=== PATIENT | female | born 1975 | race Caucasian/White ===

== ENCOUNTER 2022-05-24 11:51 | Emergency (ER) | payer MEDICARE, MEDICAID, SELFPAY ==
--- NOTE | ~2022-05-24 | XR_ITS ---
EXAMINATION: XR chest 2V DATE: 05/24/2022 12:18 INDICATION: Worsening cough TECHNIQUE: PA and lateral views of the chest are obtained. COMPARISON: None available FINDINGS: The lungs are free of acute opacities. No pleural effusion or pneumothorax. The cardiomedia stinal silhouette is normal. The visualized bones and soft tissues are unremarkable. A cardiac monito ring device is implanted in the anterior chest wall just to the left of midline. Surgical clips in th e right upper quadrant are likely from prior cholecystectomy. IMPRESSION: 1. No acute cardiopulmonary abnormality. Reviewed, dictated and finalized at location B.
[2022-05-24 11:58] VITALS: BP 95/61; PULSE 75; RESP 16; TEMP 36.9; O2SAT 100
--- NOTE | 2022-05-24 12:06 | ED.URI ---
HPI - URI/Sore Throat General Chief Complaint: Upper Respiratory Infection Stated Complaint: uri Time Seen by Provider: 05/24/22 12:07 Source: patient and RN notes reviewed Mode of arrival: ambulatory Limitations: no limitations History of Present Illness HPI Narrative: 46 y/o female presented for c/o cough for 3 weeks. Endorses clear sputum, and associated sinus pressure/congestion, and over the last 24 hours developed fatigue, headache and states fever 101. She took Z-pack and Augmentin without relief in symptoms. States she is scheduled for open heart surgery this month for aortic valve replacement. Smokes 1PPD. MD elicited complaint: cough Related Data Home Medications Medication Instructions Recorded Confirmed azelastine 137 mcg (0.1 %) nasal intranasal 05/24/22 spray aerosol calcium carbonate 600 mg-vitamin tablet PO 05/24/22 D3 10 mcg (400 unit) tablet desonide 0.05 % topical ointment topical 05/24/22 dexlansoprazole 60 mg mg 05/24/22 capsule,biphase delayed release (Dexilant) dicyclomine 10 mg capsule mg 05/24/22 diltiazem HCl 30 mg tablet 30 mg PO TID 05/24/22 05/24/22 estradiol 2 mg tablet mg 05/24/22 famotidine 20 mg tablet mg 05/24/22 ferrous sulfate 325 mg (65 mg mg 05/24/22 iron) tablet flecainide 100 mg tablet 100 mg PO DAILY 05/24/22 05/24/22 furosemide 20 mg tablet 20 mg PO DAILY 05/24/22 05/24/22 gabapentin 600 mg tablet 600 mg PO TID 05/24/22 05/24/22 hydrocodone 10 mg-acetaminophen tablet 05/24/22 325 mg tablet hydroxyzine HCl 50 mg tablet mg 05/24/22 lemborexant 10 mg tablet (Dayvigo) 10 mg PO HS 05/24/22 05/24/22 magnesium oxide mg 05/24/22 methocarbamol 500 mg tablet 500 mg PO DIRECTED 05/24/22 05/24/22 metoclopramide HCl 10 mg tablet mg 05/24/22 midodrine 10 mg tablet mg 05/24/22 montelukast 10 mg tablet mg 05/24/22 prochlorperazine maleate 10 mg 10 mg PO TID 05/24/22 05/24/22 tablet sertraline 50 mg tablet 50 mg PO DAILY 05/24/22 05/24/22 sumatriptan succinate 100 mg tablet 100 mg PO DIRECTED PRN Headache 05/24/22 05/24/22 topiramate 100 mg tablet mg 05/24/22 Allergies Allergy/AdvReac Type Severity Reaction Status Date / Time No Known Allergies Allergy Verified 05/24/22 12:06 Review of Systems Review of Systems: CONSTITUTIONAL: Endorses malaise, chills, sweats, fever EYES: Denies visual changes, redness, or discharge ENT: Reports rhinorrhea, congestion, sinus pain, otalgia CARDIOVASCULAR: Denies chest pain, palpitations, edema RESPIRATORY: Reports cough, post nasal drainage. Denies dyspnea GASTROINTESTINAL: Denies abdominal pain, nausea, vomiting, diarrhea MUSCULOSKELETAL: Endorses myalgia Exam Narrative: GENERAL: well-appearing EYES: conjunctivae clear ENT: Mucous membranes moist. TMs pearly elizabeth with normal light reflex bilaterally; no tragal tenderness. Oropharynx erythematous without lesions or exudate, no drooling, no hoarseness, no trismus, uvula midline. CHEST: Clear to auscultation, breath sounds equal. No wheezing, rhonchi, rales, or stridor. No respiratory distress, speaks in full sentences. HEART: Regular rate and rhythm. SKIN: Warm, dry, no rash. NEURO: Alert and oriented x3. Course Course Emergency Course: Patient is aware of diagnosis, understands and agrees to treatment plan. Anticipatory guidance given. Patient agrees to follow-up as directed and is aware of reasons to seek care at the emergency department. Portions of this record may have been created with voice recognition software Level of Care: Express Care Visit Vital Signs Vital signs: Vital Signs Temperature 98.4 F 05/24/22 11:58 Pulse Rate 75 05/24/22 11:58 Respiratory Rate 16 05/24/22 11:58 Blood Pressure 95/61 L 05/24/22 11:58 Pulse Oximetry 100 05/24/22 11:58 Oxygen Delivery Room Air 05/24/22 11:58 Temperature 98.4 F 05/24/22 11:58 Pulse Rate 75 05/24/22 11:58 Respiratory Rate 16 05/24/22 11:58 Blood Pressure 95/61
== END 2022-05-24 12:44 | disposition home or self-care (01) ==
PROVIDERS: Emergency Provider Nurse Practitioner Family; PCP Physician Assistant
DX: J40 Bronchitis, not specified as acute or chronic (principal); F17.200 Nicotine dependence, unspecified, uncomplicated; Z95.2 Presence of prosthetic heart valve
CPT/HCPCS: 71046; 99203; G0463

== ENCOUNTER 2023-02-18 12:07 | Emergency (ER) | payer MEDICARE, MEDICAID, SELFPAY ==
--- NOTE | ~2023-02-18 | XR_ITS ---
EXAMINATION: XR hip RT 2V w AP pelvis DATE: 02/18/2023 12:57 INDICATION: Right hip pain. TECHNIQUE: An anteroposterior view of the pelvis and 2 views of right hip were obtained. COMPARISON: None. FINDINGS: Bone alignment is normal. No fracture. There is mild osteoarthritis of the hips. IMPRESSION: 1. Mild osteoarthritis of the hips. Reviewed, dictated and finalized at location A.
--- NOTE | ~2023-02-18 | XR_ITS ---
EXAMINATION: XR elbow RT min 3V DATE: 02/18/2023 12:57 INDICATION: Right elbow pain. Fall. TECHNIQUE: 4 views of right elbow were obtained. COMPARISON: None. FINDINGS: Bone alignment is normal. No fracture. Joint spaces are well maintained. There is no elbow joint effusion. There is soft tissue swelling overlying the olecranon. IMPRESSION: 1. No fracture. Reviewed, dictated and finalized at location A. IMPRESSION: 1. No fracture.
--- NOTE | ~2023-02-18 | XR_ITS ---
EXAMINATION: XR sacrum coccyx min 2V DATE: 02/18/2023 12:57 INDICATION: Sacrococcygeal pain. Fall. TECHNIQUE: 3 views of the sacrum and coccyx on 4 radiographs were obtained. COMPARISON: None. FINDINGS: Bone alignment is normal. No fracture. There is mild osteoarthritis of left sacroiliac join t. IMPRESSION: 1. Mild osteoarthritis of left sacroiliac joint. Reviewed, dictated and finalized at location A.
[2023-02-18 12:16] VITALS: BP 92/64; PULSE 104; RESP 16; TEMP 36.3; O2SAT 100
--- NOTE | 2023-02-18 12:29 | ED.GENADULT ---
HPI - General Adult General Chief complaint: Fall Stated complaint: Fall Injury/Right Elbow/Low Back Source: patient Mode of arrival: ambulatory Limitations: no limitations History of Present Illness HPI narrative: Patient presents for evaluation after a fall 2 nights ago. She indicates she was at home with the time of the event. She has underlying POTS and has syncopal events. She was walking from her bedroom to bathroom at the time of her event. She believes she hit her head. +LOC for a few seconds. No vomiting since the event. She now reports right elbow pain and pain in coccyx/right buttock. She rates the pain in her right elbow 6/10 severity in the pain in her right buttock is 8/10. She has hydrocodone at home which she takes for chronic back pain. She is currently on coumadin and her INR within the past 24 hrs was 2.7. She has been able to ambulate since the event. She had some decreased ROM in right elbow yesterday but that has improved. No paresthesias. She is a nurse. Related Data Home Medications Medication Instructions Recorded Confirmed azelastine 137 mcg (0.1 %) nasal intranasal 05/24/22 spray aerosol calcium carbonate 600 mg-vitamin tablet PO 05/24/22 D3 10 mcg (400 unit) tablet desonide 0.05 % topical ointment topical 05/24/22 dexlansoprazole 60 mg mg 05/24/22 capsule,biphase delayed release (Dexilant) dicyclomine 10 mg capsule mg 05/24/22 diltiazem HCl 30 mg tablet 30 mg PO TID 05/24/22 05/24/22 estradiol 2 mg tablet mg 05/24/22 famotidine 20 mg tablet mg 05/24/22 ferrous sulfate 325 mg (65 mg mg 05/24/22 iron) tablet flecainide 100 mg tablet 100 mg PO DAILY 05/24/22 05/24/22 furosemide 20 mg tablet 20 mg PO DAILY 05/24/22 05/24/22 gabapentin 600 mg tablet 600 mg PO TID 05/24/22 05/24/22 hydrocodone 10 mg-acetaminophen tablet 05/24/22 325 mg tablet hydroxyzine HCl 50 mg tablet mg 05/24/22 lemborexant 10 mg tablet (Dayvigo) 10 mg PO HS 05/24/22 05/24/22 magnesium oxide mg 05/24/22 methocarbamol 500 mg tablet 500 mg PO DIRECTED 05/24/22 05/24/22 metoclopramide HCl 10 mg tablet mg 05/24/22 midodrine 10 mg tablet mg 05/24/22 montelukast 10 mg tablet mg 05/24/22 prochlorperazine maleate 10 mg 10 mg PO TID 05/24/22 05/24/22 tablet sertraline 50 mg tablet 50 mg PO DAILY 05/24/22 05/24/22 sumatriptan succinate 100 mg tablet 100 mg PO DIRECTED PRN Headache 05/24/22 05/24/22 topiramate 100 mg tablet mg 05/24/22 Allergies Allergy/AdvReac Type Severity Reaction Status Date / Time No Known Allergies Allergy Verified 05/24/22 12:06 Review of Systems Review of Systems: CONSTITUTIONAL: Denies fever, chills, or sweats. EYES: Denies visual changes, redness, or discharge. ENT: Denies rhinorrhea, congestion, sore throat, or otalgia. CARDIOVASCULAR: Denies chest pain, palpitations, or edema. RESPIRATORY: Denies cough or dyspnea. GASTROINTESTINAL: Denies abdominal pain, nausea, vomiting, or diarrhea. GENITOURINARY: Denies dysuria or hematuria. SKIN: Denies rash or itching. MUSCULOSKELETAL: Reports chronic low back pain. Reports pain in the right buttock and right elbow NEUROLOGIC: Denies headache, numbness, dizziness, or weakness. PSYCHIATRIC: Denies anxiety or depression. [facility] Past Medical History Medical History (Updated 02/18/23 @ 13:19 by GLO Leon, ) Osteopenia POTS (postural orthostatic tachycardia syndrome) Tachycardia Surgical History Surgical History History of open heart surgery Family History Family History Mother Family history non-contributory Social History Social History Substance use: never Additional occupation/education comments: nurse Gender identity (if verbalized by the patient): Female Spiritual care concerns: No Exam Narrat
== END 2023-02-18 13:24 | disposition home or self-care (01) ==
PROVIDERS: Emergency Provider Nurse Practitioner; PCP Physician Assistant
DX: S50.01XA Contusion of right elbow, initial encounter (principal); S30.0XXA Contusion of lower back and pelvis, initial encounter; W19.XXXA Unspecified fall, initial encounter; M85.80 Other specified disorders of bone density and structure, unspecified site
CPT/HCPCS: 72220; 73080; 73502; 99214; G0463